=== PATIENT | female | born 1955 | race African-American/Black ===

== ENCOUNTER 2020-12-03 06:56 | Day surgery (SDC) | payer OTHER ==
[2020-12-02 14:59] VITALS: BMI 37.0
[2020-12-03] MEDS ORDERED: LIDOCAINE HCL/PF 2% SDV 5ML VIAL ONE (07:33)
[2020-12-03] MEDS ORDERED: PROPOFOL 20 ML ONE ×5 (07:33→07:39)
[2020-12-03 08:58] VITALS: TEMP 97.7
[2020-12-03 09:28] VITALS: BP 146/79; PULSE 66
== END 2020-12-03 09:10 | disposition home or self-care (01) ==
LOC: FASU-ENDO 06:56
PROVIDERS: ATTEND Internal Medicine Gastroenterology
PROC: 0DJD8ZZ Inspection of Lower Intestinal Tract, Via Natural or Artificial Opening Endoscopic (ICD-10-PCS; principal; 2020-12-03 08:29)
DX: Z12.11 Encounter for screening for malignant neoplasm of colon (principal)
CPT/HCPCS: 82962